=== PATIENT | male | born 1970 | race Caucasian/White ===

== ENCOUNTER 2018-08-26 19:19 | Emergency (ER) | payer OTHER ==
--- NOTE | 2018-08-26 19:58 | ER Document Report ---
ED General - General Chief Complaint: Flank Pain Stated Complaint: FLANK PAIN Time Seen by Provider: 08/26/18 19:42 Mode of Arrival: Ambulatory Information source: Patient Notes: Patient is a 48 year old male from [place] who [place]. He presents today with complaints of Right upper back pain x 1 month. He says it started while he was in [place]. His physician diagnosed him with muscle strain and started him on motrin and flexeril. Patient says the medication has not helped with the pain. He describes the pain as a constant aching sensation in the R parathoracic area. No radiation of the pain. No alleviating or exacerbating factors. He denies chest pain, shortness of breath, fever, chills, cough, abdominal pain, nausea, vomiting, diarrhea, constipation, hematuria. TRAVEL OUTSIDE OF THE [place] IN LAST 30 DAYS: No - HPI Onset: Other - 1 month Onset/Duration: Constant Quality of pain: Achy Severity: Mild Pain Level: Denies Associated symptoms: None Exacerbated by: Denies Relieved by: Denies Similar symptoms previously: Yes Recently seen / treated by doctor: Yes - Related Data Allergies/Adverse Reactions: No Known Allergies Allergy (Unverified 08/26/18 19:24) Past Medical History - Social History Smoking Status: Never Smoker Family History: Reviewed & Not Pertinent Review of Systems - Review of Systems Constitutional: No symptoms reported EENT: No symptoms reported Cardiovascular: No symptoms reported Respiratory: No symptoms reported Gastrointestinal: No symptoms reported Genitourinary: No symptoms reported Musculoskeletal: Back pain Skin: No symptoms reported Hematologic/Lymphatic: No symptoms reported Neurological/Psychological: No symptoms reported -: Yes All other systems reviewed and negative Physical Exam - Notes Notes: PHYSICAL EXAMINATION: GENERAL: Well-appearing, well-nourished and in no acute distress. HEAD: Atraumatic, normocephalic. EYES: Pupils equal round and reactive to light, extraocular movements intact, sclera anicteric, conjunctiva are normal. ENT: Nares patent, oropharynx clear without exudates. Moist mucous membranes. NECK: Normal range of motion, supple without lymphadenopathy LUNGS: Breath sounds clear to auscultation bilaterally and equal. No wheezes rales or rhonchi. HEART: Regular rate and rhythm without murmurs ABDOMEN: Soft, nontender, nondistended abdomen. No guarding, no rebound. No masses appreciated. Musculoskeletal: Normal range of motion, no pitting or edema. No cyanosis. Tenderness to palpation in the Right parathoracic muscles. NEUROLOGICAL: Cranial nerves grossly intact. Normal speech, normal gait. Normal sensory, motor exams PSYCH: Normal mood, normal affect. SKIN: Warm, Dry, normal turgor, no rashes or lesions noted. Course - Re-evaluation Re-evalutation: 08/26/18 19:56 Wells score <2. PERC is negative. Per uptodate, PE excluded. No further workup required. Patient requesting CXR. This was done. No acute process seen. Patient has muscle strain. Will discharge home. Patient instructed to take medication as directed, to follow up with his PCP this week, and to return for worsening symptoms. Patient is agreeable with the plan of care. 08/26/18 20:36 Discharge - Discharge Clinical Impression: Thoracic myofascial strain Qualifiers: Encounter type: initial encounter Qualified Code(s): S29.019A - Strain of muscle and tendon of unspecified wall of thorax, initial encounter Condition: Good Disposition: HOME, SELF-CARE Instructions: Muscle Strain ([facility]) Prescriptions: Carisoprodol [Soma 350 Mg Tablet] 350 mg PO TID PRN #15 tablet PRN Reason: Referrals: TARYN MCDANIEL MD [[facility] STAFF] - Follow up as needed
--- NOTE | 2018-08-26 20:29 | RADIOLOGY REPORT (SQ) ---
EXAM DESCRIPTION: CHEST 2 VIEWS COMPLETED DATE/TIME: 08/26/2018 8:07 pm REASON FOR STUDY: upper back pain COMPARISON: None. EXAM PARAMETERS: NUMBER OF VIEWS: two views TECHNIQUE: Digital Frontal and Lateral radiographic views of the chest acquired. RADIATION DOSE: NA LIMITATIONS: none FINDINGS: LUNGS AND PLEURA: Calcified granuloma right lung apex. No acute infiltrates. No pleural effusion or pneumothorax MEDIASTINUM AND HILAR STRUCTURES: No masses or contour abnormalities. HEART AND VASCULAR STRUCTURES: Heart normal size. No evidence for failure. BONES: No acute findings. HARDWARE: None in the chest. OTHER: No other significant finding. IMPRESSION: NO ACUTE RADIOGRAPHIC FINDING IN THE CHEST. TECHNICAL DOCUMENTATION: JOB ID: [id number] [employer]- All Rights Reserved Reading location - IP/workstation name: [email or web address]
[2018-08-26 21:17] VITALS: BP 123/81
== END 2018-08-26 21:06 | disposition home or self-care (01) ==
LOC: ER 19:19
DX: S29.019A Strain of muscle and tendon of unspecified wall of thorax, initial encounter (principal); R10.9 Unspecified abdominal pain; M54.6 Pain in thoracic spine; X58.XXXA Exposure to other specified factors, initial encounter; Z79.899 Other long term (current) drug therapy
CPT/HCPCS: 71046; 99284